=== PATIENT | female | born 1990 | race Caucasian/White ===

== ENCOUNTER 2019-05-21 20:45 | Emergency (ER) | payer OTHER ==
[~2019-05-21] VITALS: Ht 165.1 cm; Wt 77.4 kg
[~2019-05-21 20:45] MED LIST: AMOX1TAB10 PO; METH500T PO
[2019-05-21 20:55] VITALS: Ht 165.1 cm; Wt 77.4 kg
[2019-05-21] MEDS ORDERED: METHOCARBAMOL 750 MG TAB PO ONE (22:30)
[2019-05-21 22:53] VITALS: BP 113/69; PULSE 63; RESP 15
== END 2019-05-21 22:53 | disposition home or self-care (01) ==
LOC: FTE 20:45
DX: H66.002 Acute suppurative otitis media without spontaneous rupture of ear drum, left ear (principal)
CPT/HCPCS: 81025; Z7502; Z7610; 99283